=== PATIENT | female | born 1945 | race Caucasian/White ===

== ENCOUNTER → 2018-10-23 | Outpatient (CLI) | payer MEDICARE ==
--- NOTE | 2018-10-23 13:46 | RAD ---
Indication:Postmenopausal bleeding. TECHNIQUE: Grayscale, color Doppler and spectral waveform images of the pelvis obtained. COMPARISON: None FINDINGS: The uterus is anteverted and measures 8.5 x 2.7 x 5.2 cm (longitudinal, AP, transverse) is. Endometrial stripe measures 6 mm in thickness and is top normal. The left ovary measures 2.2 x 2.0 x 1.7 cm and shows blood flow. The right ovary measures 1.8 x 2.0 x 1.6 m and shows blood flow. No free pelvic fluid. IMPRESSION: Minimally thickened endometrial stripe measuring 5-6 mm be secondary to endometrial hyperplasia although endometrial malignancy is not entirely ruled out. Further evaluation with hysteroscopy may be of additional benefit. Electronically signed by: Arya Erwin DO (10/23/2018 1:42 PM) [id number]
== END | disposition home or self-care (01) ==
LOC: US 09:58
PROVIDERS: ATTEND Obstetrics & Gynecology
DX: N85.00 Endometrial hyperplasia, unspecified (principal)
CPT/HCPCS: 76830; 76856

== ENCOUNTER → 2021-10-28 | Outpatient (CLI) | payer MEDICARE ==
--- NOTE | 2021-11-01 11:45 | RAD ---
Study: BILATERAL SCREENING MAMMOGRAM History: Routine screening. Comparison: Most recently on 01/17/2019. Technique: Routine 2D digital mammogram views were obtained bilaterally. Interpretation was assisted with the use of computer-aided detection. Findings: Breast Tissue Density C : The breasts are heterogeneously dense, which may obscure small masses. Scattered microcalcifications on the right and left are without significant change. No newly seen mas s, architectural distortion or suspicious microcalcifications. IMPRESSION: No mammographic evidence of malignancy. Recommend routine screening mammography in one year. BI-RADS category 2: Benign findings. Patient information is entered into the reminder system with a target due date for the next screening mammogram. "Our facility is accredited by the [employer] Mammography [employer]." Electronically signed by: HARSH ROBLEDO MD (11/01/2021 11:43 AM) [id number]
== END ==
LOC: MAMMO 10:13
PROVIDERS: ATTEND Family Medicine
DX: Z12.31 Encounter for screening mammogram for malignant neoplasm of breast (principal)
CPT/HCPCS: 77067

== ENCOUNTER → 2022-01-11 | Day surgery (SDC) | payer MEDICARE ==
[~2022-01-11] MED LIST: ASPI81TA59 PO; CRESTOR10 MG PO; FENO150C PO; IPRATRPIUM/ALBUTEROL 0.5/2.5MG 3 ML NEBU. NEB PRN; IRON15TA3 PO; IV RINGERS SOLUTION,LACTATED 1,000 ML IV SCH; JANUMET AC; LIDOCAINE 2% PF 5 ML VIAL. ONE; LISI20TA18 PO; METO-239 PO; MIDAZOLAM HCL PF 2 MG/2 ML VIAL. IV ONE; ONDANSETRON PF 4 MG/2 ML VIAL. IV PRN; PROPOFOL 10,000 MCG/ML (20ML) VIAL IV ONE; TUMS PO; VITA100022 PO; VITAMIN B12
[2022-01-11 15:30] VITALS: BP 145/77
== END | disposition home or self-care (01) ==
LOC: SURG 13:32
PROVIDERS: ATTEND Internal Medicine Gastroenterology
DX: Z12.11 Encounter for screening for malignant neoplasm of colon (principal); K21.9 Gastro-esophageal reflux disease without esophagitis; E78.00 Pure hypercholesterolemia, unspecified; I12.9 Hypertensive chronic kidney disease with stage 1 through stage 4 chronic kidney disease, or unspecified chronic kidney disease; E11.22 Type 2 diabetes mellitus with diabetic chronic kidney disease; N18.30 Chronic kidney disease, stage 3 unspecified; K76.0 Fatty (change of) liver, not elsewhere classified; Z86.010 Personal history of colon polyps
CPT/HCPCS: 82947; G0105; J2001; J2704; J7120